=== PATIENT | female | born 1980 | race Hispanic/Latino ===

== ENCOUNTER 2018-07-16 09:08 | Day surgery (SDC) | payer BC ==
[2018-07-15 15:26] LABS: Absolute Lymphocytes (CBC) 2.2 K/uL (0.7-4.9); Absolute Monocytes 0.7 K/uL (0.1-1.3); Absolute Neutrophil 5.5 K/uL (1.8-8.0); Basophils % 0.1 % (0-1.3); Eosinophils % 0.5 % (0-4.4); Hematocrit 41.2 % (36.0-45.0); Lymphocytes % 25.5 % (15.3-44.8); MPV 8.5 fL (7.6-11.3); Monocytes % 8.6 % (3.3-12.3)
[2018-07-16 09:30] LABS: Specific Gravity 1.025 (1.005-1.030)
[2018-07-16] MEDS ORDERED: Ringers Lactate 1,000 ML IV ONE (09:35)
[2018-07-16] MEDS ORDERED: BUPIVACAINE 0.5% PF 10 ML VIAL ONE (11:09)
[2018-07-16] MEDS ORDERED: MIDAZOLAM HCL 2 MG/2 ML INJ ONE (11:17)
[2018-07-16] MEDS ORDERED: CEFAZOLIN/SWI 1gm 1 GM/10 ML SYR ONE (11:21)
[2018-07-16] MEDS ORDERED: FENTANYL CITR 100 MCG/2 ML ONE (11:32)
[2018-07-16] MEDS ORDERED: PROPOFOL 200 MG/20 ML VIAL IV ONE (11:32)
[2018-07-16] MEDS ORDERED: ONDANSETRON 4 MG/2 ML VIAL ONE (11:32)
[2018-07-16] MEDS ORDERED: LIDOCAINE 2% MPF 5 ML VIAL ONE (11:32)
--- NOTE | 2018-07-16 12:01 | P.BOP ---
Preoperative diagnosis: tender right axillary mass Postoperative diagnosis: same Primary procedure: Excisinal biopsy of tender right axillary mass 5x3cm Estimated blood loss: <5cc Specimen: right axillary mass Findings: right axillary mass Anesthesia: General Complications: None Drain(s): MEAGHAN drain Transferred to: Recovery Room Condition: Good
[2018-07-16] MEDS: HYDROMORPHONE HCL 2 MG/ML inj ONE ×4 (12:13→12:33)
[2018-07-16] MEDS ORDERED: CODEINE 30MG/APAP 300MG TAB ONE (14:32)
[2018-07-16] MEDS ORDERED: PROMETHAZINE 25 MG/ML VIAL ONE (14:38)
--- NOTE | 2018-07-16 23:41 | OP ---
Date of Procedure: 07/16/2018 Surgeon: Yordan Baird MD Preoperative Diagnosis: Tender right axillary mass. Postoperative Diagnosis: Tender right axillary mass. Procedure: Excisional biopsy of tender right axillary mass about 5 x 3 cm. Anesthesia: General plus local. Drain: MEAGHAN #10. Indications: This is the case of a 38-year-old patient, who comes to us with an enlarging mass in th e right axillary region. She has been trying to deal with that, but it is giving her pain and discom fort, is noticeable and tender to palpation. She showed it to me. We concur with her diagnosis of t he mass. Since this is very symptomatic, she wants that out. Benefits, alternatives, and risks of ex cision were fully explained which included, but were not limited to infection, bleeding, damage to ad jacent structures, anesthesia complication, seroma, hematoma, nonhealing wound, [place], and even . She also understands this might not relieve her symptoms. She might need more than one surgical inte rvention. She understood, signed the consent. Description Of Procedure: The patient was brought to the operating room, placed in supine position. Anesthesia was done without complication. Right axillary area was prepped and draped in a sterile f ashion. We had marked the area previously that was there by the patient and me in the holding room. An incision was made in that area. Some of the skin have to be removed with this lump since it was already expanded. Then, the mass was found all the way down to axillary fat pad. The mass was excis ed. Hemostasis was obtained. This was a large cavity with the chance for seromas. We close this in layers. We still leave a MEAGHAN drain in that area exiting through an another incision and secured in p lace with 3-0 nylon. Then, we closed this in layers and closed the skin with gay. Sponge count and instrument counts were correct. The patient was sent to recovery in stable condition. DISCHARGE SUMMARY Diagnosis: Tender right axillary mass. Procedure: Excisional biopsy of tender axillary mass. Disposition: Home. Activity: As tolerated. No heavy lifting. Followup: Follow up in my office in 1 week. Call for appointment at [phone]. Keep the area dry for 48 hours, then come to my office for evaluation. Medications: See orders. HM/MODL Voice ID: [id number] Report ID: [id number]
== END 2018-07-16 15:13 | disposition home or self-care (01) ==
LOC: OR 09:08
PROVIDERS: ATTEND Surgery
PROC: 0JB60ZX Excision of Chest Subcutaneous Tissue and Fascia, Open Approach, Diagnostic (ICD-10-PCS; principal; 2018-07-16 10:00)
DX: D17.1 Benign lipomatous neoplasm of skin and subcutaneous tissue of trunk (principal); E78.00 Pure hypercholesterolemia, unspecified; Z79.899 Other long term (current) drug therapy
CPT/HCPCS: 36415; 80048; 81025; 84703; 85025; 88304; J0690; J1170; J2250; J2405; J2550; J2704; J3010